=== PATIENT | female | born 1985 | race Caucasian/White ===

== ENCOUNTER 2020-02-10 07:49 | Emergency (ER) | payer MEDICARE, SELFPAY ==
[2020-02-10 07:58] VITALS: BP 135/91; PULSE 91; RESP 20; TEMP 37.4; O2SAT 100
--- NOTE | 2020-02-10 07:59 | ED.GENADULT ---
HPI - General Adult General Chief complaint: Unspecified Stated complaint: RA flareup Time Seen by Provider: 02/10/20 08:03 Source: patient Mode of arrival: ambulatory Limitations: no limitations History of Present Illness HPI narrative: A 34 y/o female presents to the ED with c/o RA flare-up. Pt states that she is having a RA flare-up and wants to get a prescription of Prednisone. She notes that she moved to [place] from [place] in September 2019 and does not have a PCP or a printing plate setter. Pt has been taking Ibuprofen 800mg TID with no relief. She missed her last Remicade Infusion due to it being in [place]. Pt reports that she hurts all over, but especially in her hands. She denies any illness symptoms. complaint: RA flare-up Onset (ago): unknown Severity: similar to prior episodes Pain Consistency: constant Relieving factors: none Associated symptoms: other (diffuse pain more severe in bilateral hands) Treatments prior to arrival: NSAID Related Data Allergies Allergy/AdvReac Type Severity Reaction Status Date / Time No Known Allergies Allergy Verified 02/10/20 08:00 Review of Systems Review of Systems: All systems reviewed & are unremarkable except as noted in HPI and below Constitutional: Constitutional: Denies other (illness symptoms) Musculoskeletal: Musculoskeletal: Reports other (diffuse pain more severe in bilateral hands) [facility] Past Medical History Medical History (Updated 02/10/20 @ 08:27 by Jinny Esquivel MD) Rheumatoid arthritis Surgical History Surgical History (Updated 02/10/20 @ 08:12 by Diane Piña) History of knee replacement, total Bilateral History of tonsillectomy History of tubal ligation Social History Social History (Updated 02/10/20 @ 08:12 by Diane Piña) Smoking status: Never smoker Gender identity (if verbalized by the patient): Female Exam Const: General: cooperative, no acute distress and alert Nutritional Appearance: well nourished Orientation/consciousness: patient oriented x3 Limitations: no limitations HENMT: Mouth: Yes lip normal and Yes moist mucous membranes Resp: Effort & Inspection: normal respiratory effort Auscultation: clear to auscultation bilaterally Cardio: Rate: regular rate Rhythm: regular rhythm GI: GI Palp: Yes Soft to palpation and No Tenderness to palpation present (GI) Auscultation: normal bowel sounds Skin: General skin exam: normal color Neuro: General: patient oriented x3 Cognition (Neuro): normal cognition Speech: normal speech Extrem: General: normal to inspection, full ROM, edema bilateral (mild to fingers) and no other (erythema) Psych: Mental Status: mental status grossly normal Affect: normal affect Attitude: cooperative Course Course Emergency Course: Patient with history of rheumatoid arthritis who has been off of her biologic since moving to the area from [place] several months ago. Patient with diffuse joint pain. Will prescribe Medrol Dosepak for symptom relief, since she is already on NSAIDs without relief. Stressed to patient the importance of establishing care with a primary care physician and printing plate setter for further management of her chronic condition. Vital Signs Vital signs: Vital Signs Temperature 99.3 F 02/10/20 07:58 Pulse Rate 91 02/10/20 07:58 Respiratory Rate 20 02/10/20 07:58 Blood Pressure 135/91 H 02/10/20 07:58 Pulse Oximetry 100 02/10/20 07:58 Temperature 99.3 F 02/10/20 07:58 Pulse Rate 72 02/10/20 08:40 Respiratory Rate 14 02/10/20 08:40 Blood Pressure 132/70 02/10/20 08:40 Pulse Oximetry 99 02/10/20 08:40 Medical Decision Making Vital Signs Vital Signs: Vital Signs Temperature 99.3 F 02/10/20 07:58 Pulse Rate 91 02/10/20 07:58 Respiratory Rate 20 02/10/20 07:58 Blood Pressure 135/91 H 02/10/20 07:58 Pulse Oximetry 100 02/10/20 07:58 Temperature 99.3 F 02/10/20 07:58 Pulse Rate 72 02/10/20 08:40 Resp
[2020-02-10 08:40] VITALS: BP 132/70; PULSE 72; RESP 14; O2SAT 99
== END 2020-02-10 08:42 | disposition home or self-care (01) ==
PROVIDERS: Emergency Provider Emergency Medicine
DX: M06.9 Rheumatoid arthritis, unspecified (principal); Z96.653 Presence of artificial knee joint, bilateral
CPT/HCPCS: 99283

== ENCOUNTER 2021-01-14 20:03 | Emergency (ER) | payer MEDICARE, SELFPAY ==
[2021-01-14 20:40] VITALS: BP 134/97; PULSE 121; RESP 20; TEMP 37.1; O2SAT 98
[2021-01-14 21:53] VITALS: BP 148/86; PULSE 120; RESP 18; TEMP 37.4; O2SAT 99
--- NOTE | 2021-01-14 22:26 | ED.EXTPRO ---
HPI - Extremity Problem General Chief complaint: Extremity Problem,Nontraumatic Stated complaint: shingles pain Time Seen by Provider: 01/14/21 22:01 Source: patient and family Mode of arrival: ambulatory Limitations: no limitations History of Present Illness HPI Narrative: Patient 35 years old white female complaining of right upper back, shoulder and right upper extremity pain started 6 days ago, patient was diagnosed of having shingles at that area 6 days ago and started on antiviral treatment. Patient believes her pain got worse today. Patient denies any fever, chills, nausea, vomiting, chest pain. History of rheumatoid arthritis on immune suppressant medication which is stopped lately Related Data Home Medications Medication Instructions Recorded Confirmed valacyclovir 01/14/21 Allergies Allergy/AdvReac Type Severity Reaction Status Date / Time No Known Allergies Allergy Verified 01/14/21 21:57 Review of Systems Review of Systems: Narrative: CONSTITUTIONAL: Denies fever, chills, or sweats. EYES: Denies visual changes, redness, or discharge. ENT: Denies rhinorrhea, congestion, sore throat, or otalgia. CARDIOVASCULAR: Denies chest pain, palpitations, or edema. RESPIRATORY: Denies cough or dyspnea. GASTROINTESTINAL: Denies abdominal pain, nausea, vomiting, or diarrhea. GENITOURINARY: Denies dysuria or hematuria. SKIN: Denies rash or itching. MUSCULOSKELETAL: Denies back pain, joint pain, or myalgia. NEUROLOGIC: Denies headache, numbness, or weakness. PSYCHIATRIC: Denies anxiety or depression. PMFSH Past Medical History Medical History Rheumatoid arthritis Surgical History Surgical History History of knee replacement, total Bilateral History of tonsillectomy History of tubal ligation Social History Social History Smoking status: Never smoker Gender identity (if verbalized by the patient): Female Exam Narrative: Exam Narrative: General appearance: Well-developed, well-nourished Skin: Normal color, scattered blisters on the right upper extremity, in healing process. No erythema, no discharge, no warmth Head: Normocephalic, nontraumatic Eyes: Clear conjunctiva ENT: Oropharynx normal, ears normal, nose normal Neck: Supple, nontender Chest and respiratory: Airway patent, no respiratory distress, no accessory muscle use Heart: Regular rate/rhythm Abdomen: Soft, nontender, no organomegaly, quiet bowel sounds Vascular: Normal peripheral pulses, normal capillary refill. Musculoskeletal: Normal range of motion, nontender back Neurologic: Alert and oriented ?3, [employer]IP[employer] is normal as tested, no gross motor deficit Course Course Emergency Course: Stable Vital Signs Vital signs: Vital Signs Temperature 37.1 C 01/14/21 20:40 Pulse Rate 121 H 01/14/21 20:40 Respiratory Rate 20 01/14/21 20:40 Blood Pressure 134/97 H 01/14/21 20:40 Pulse Oximetry 98 01/14/21 20:40 Temperature 37.4 C 01/14/21 21:53 Pulse Rate 120 H 01/14/21 21:53 Respiratory Rate 18 01/14/21 21:53 Blood Pressure 148/86 H 01/14/21 21:53 Pulse Oximetry 99 01/14/21 21:53 MDM - Extremity (Nontraumatic) MDM Narrative Medical decision making narrative: Right upper extremity shingles Critical Care Time Critical Care Time Critical Care Time: No Discharge Plan Discharge Clinical Impression: Shingles Qualifiers: Herpes zoster complications: unspecified herpes zoster complication Qualified Code(s): B02.8 - Zoster with other complications Patient Disposition: Home, Self-Ca
[2021-01-14] MEDS: ONDANSETRON HCL ODT 4 MG TABLET PO (23:02)
[2021-01-14] MEDS: HYDROmorphone HCL INJ (*CRX) 1 MG/ML SYR IM (23:03)
[2021-01-14 23:30] VITALS: BP 139/89; PULSE 110; RESP 18; TEMP 37.2; O2SAT 100
== END 2021-01-14 23:30 | disposition home or self-care (01) ==
PROVIDERS: Emergency Provider Emergency Medicine; PCP Physician Assistant
DX: B02.8 Zoster with other complications (principal); M06.9 Rheumatoid arthritis, unspecified; Z96.653 Presence of artificial knee joint, bilateral
CPT/HCPCS: 96372; 99283; A9270; J1170